=== PATIENT | female | born 1950 | race Two or more races ===

== ENCOUNTER 2017-07-21 05:44 | Inpatient (IN) | payer MEDICARE, MEDICAID ==
[2017-07-21] VITALS (21 sets, daily range): BP systolic 90–118; BP diastolic 52–70
[~2017-07-21] VITALS: Ht 162.6 cm; Wt 97.5 kg
[2017-07-21] MEDS ORDERED: ceFAZolin 1gm in D5W 55ml IVP ONE (06:00)
[2017-07-21] MEDS ORDERED: ATORVASTATIN CA20 MG ORAL (07:01)
[2017-07-21] MEDS ORDERED: GABAPENTIN100 MG ORAL (07:01)
[2017-07-21] MEDS ORDERED: VESICARE10 MG ORAL (07:01)
[2017-07-21] MEDS ORDERED: WARFARIN SODIUM1 MG ORAL (07:01)
[2017-07-21] MEDS ORDERED: BUMETANIDE1 MG ORAL (07:01)
[2017-07-21] MEDS ORDERED: IMIPRAMINE HCL10 MG PO (07:01)
[2017-07-21] MEDS ORDERED: FAMOTIDINE20 MG ORAL (07:01)
[2017-07-21] MEDS ORDERED: LANTUS SOL100 UNIT/1 SUBQ ×2 (07:01)
[2017-07-21] MEDS ORDERED: NeoSporin Gu Irrig 1ml Amp IRRIG ONE (07:12)
[2017-07-21] MEDS ORDERED: EPINEPHrine 1mg/1ml Amp ONE (07:12)
[2017-07-21] MEDS ORDERED: Bupivacaine 0.25% Inj 30ml INJ ONE (07:12)
[2017-07-21] MEDS ORDERED: Bacitracin 50000 Units Vial ONE (07:12)
[2017-07-21] MEDS ORDERED: Surgicel 4in x 8in TOPIC ONE (07:12)
[2017-07-21] MEDS ORDERED: Metoclopramide 10mg/10ml Liq ONE (07:20)
[2017-07-21] MEDS ORDERED: Sterile Water Irrig 1000ml IRRIG ONE (07:20)
[2017-07-21] MEDS ORDERED: NS Irrig 1000ml ONE (07:20)
[2017-07-21] MEDS ORDERED: fentaNYL 100 mcg/2 mL IV ONE (07:20)
[2017-07-21] MEDS ORDERED: Propofol 200mg/20ml IV ONE (07:20)
[2017-07-21] MEDS ORDERED: Midazolam 2mg/2ml Inj ONE (07:20)
[2017-07-21] MEDS ORDERED: Lidocaine 1% MPF 10mg/ml 5ml ONE (07:20)
[2017-07-21] MEDS ORDERED: LR 1000ml ONE (07:20)
[2017-07-21] MEDS ORDERED: Sterile Water For Irrig 2000ml IRRIG ONE (07:20)
[2017-07-21] MEDS ORDERED: ePHEDrine 50mg/ml Inj ONE (07:20)
[2017-07-21] MEDS ORDERED: Metoclopramide 10mg/2ml Inj ONE (07:20)
[2017-07-21] MEDS ORDERED: ProvayBlue 5mg/ml 10ml amp INJ ONE (07:30)
--- NOTE | 2017-07-21 07:38 | Anethesia Preoperative Eval ---
Anesthesia Pre-op PMH/ROS General Date of Evaluation: Jul 21, 2017 Time of Evaluation: 07:35 Anesthesiologist: alexander ASA Score: ASA 3 Mallampati Score Class I : Soft palate, uvula, fauces, pillars visible Class II: Soft palate, uvula, fauces visible Class III: Soft palate, base of uvula visible Class IV: Only hard plate visible Mallampati Classification: Class III Surgeon: Makeda Diagnosis: Bladder Prolapse Surgical Procedure: bladder sling Anesthesia History: none Family History: no anesthesia problems Allergies: Coded Allergies: No Known Allergies (Unverified , 07/20/17) Medications: see eMAR Past Medical History Cardiovascular: Reports: HTN, CAD, valve dz Pulmonary: Denies: asthma, COPD, [place], other Gastrointestinal/Genitourinary: Reports: GERD - controlled Neurologic/Psychiatric: Denies: dementia, CVA, depression/anxiety, TIA, other Endocrine: Reports: DM HEENT: Denies: cataract (L), cataract (R), glaucoma, [place] (L), EL[place] (R), other Hematology/Immune: Denies: anemia, DVT, bleeding disorder, other Other: obesity PSxH Narrative: pacemaker placement; tricuspid surgery Anesthesia Pre-op Phys. Exam Physician Exam see chart; vss; 125/70 vpaced Constitutional: NAD Neurologic: CN 2-12 intact Cardiovascular: other - v paced Respiratory: CTA Gastrointestinal: S/NT/ND Airway Exam Mallampati Score: Class III ROM: full Anesthesia Pre-op A/P Labs inr = 1.5 on 07/12 , stopped coumadin 07/12 Accucheck BS = 125 Studies Pre-op Studies: EKG - vpaced Risk Assessment & Plan Assessment: denies cp; chest pain Plan: LMA Status Change Before Surgery: No Pre-Antibiotics Drug: ancef Given Within 1 Hr of Incision: Yes Time Given: 07:35 MIKAL CASE CRNA Jul 21, 2017 07:38
--- NOTE | 2017-07-21 07:50 | Pre-Procedure Note/Attestation ---
Pre-Procedure Note/Attestation Complete Prior to Procedure Planned Procedure: not applicable Procedure Narrative: cystocele and rectocele repair vaginal sling cystoscopy Indications for Procedure Pre-Operative Diagnosis: prolapse Attestation I attest that I discussed the nature of the procedure; its benefits; risks and complications; and alternatives (and the risks and benefits of such alternatives ), prior to the procedure, with the patient (or the patient's legal credit and collections representative). I attest that, if there was a reasonable possibility of needing a blood transfusion, the patient (or the patient's legal credit and collections representative) was given the [facility] standardized written summary, pursuant to the Segundo [place] Blood Safety Act ([place] Health and Safety Code # 1645, as amended). I attest that I re-evaluated the patient just prior to the surgery and that there has been no change in the patient's H&P, except as documented below: Trevor Ashford MD Jul 21, 2017 07:50
--- NOTE | 2017-07-21 07:50 | Pre-Procedure Note/Attestation ---
Pre-Procedure Note/Attestation Complete Prior to Procedure Planned Procedure: not applicable Procedure Narrative: cystocele and rectocele repair vaginal sling cystoscopy Indications for Procedure Pre-Operative Diagnosis: prolapse Attestation I attest that I discussed the nature of the procedure; its benefits; risks and complications; and alternatives (and the risks and benefits of such alternatives ), prior to the procedure, with the patient (or the patient's legal off premise service representative). I attest that, if there was a reasonable possibility of needing a blood transfusion, the patient (or the patient's legal off premise service representative) was given the [facility] standardized written summary, pursuant to the Segundo [place] Blood Safety Act ([place] Health and Safety Code # 1645, as amended). I attest that I re-evaluated the patient just prior to the surgery and that there has been no change in the patient's H&P, except as documented below: Trevor Ashford MD Jul 21, 2017 07:50
--- NOTE | 2017-07-21 07:50 | Pre-Procedure Note/Attestation ---
Pre-Procedure Note/Attestation Complete Prior to Procedure Planned Procedure: not applicable Procedure Narrative: cystocele and rectocele repair vaginal sling cystoscopy Indications for Procedure Pre-Operative Diagnosis: prolapse Attestation I attest that I discussed the nature of the procedure; its benefits; risks and complications; and alternatives (and the risks and benefits of such alternatives ), prior to the procedure, with the patient (or the patient's legal printing sales representative). I attest that, if there was a reasonable possibility of needing a blood transfusion, the patient (or the patient's legal printing sales representative) was given the [facility] standardized written summary, pursuant to the Segundo [place] Blood Safety Act ([place] Health and Safety Code # 1645, as amended). I attest that I re-evaluated the patient just prior to the surgery and that there has been no change in the patient's H&P, except as documented below: Trevor Ashford MD Jul 21, 2017 07:50
[2017-07-21] MEDS ORDERED: Acetaminophen (Non formulary) 100 ML IV ONE (08:00)
--- NOTE | 2017-07-21 08:41 | Brief Operative Note ---
Immediate Post Operative Note Operative Note Pre-op Diagnosis: prolapse Procedure: cystocele and rectocele repair vaginal sling cystoscopy Post-op Diagnosis: same Surgeon: Francois Ashford Anesthesia: general Specimen: none Complications: none Condition: stable Fluids: 500 Estimated Blood Loss: minimal Implant(s) used?: Trevor Herrera MD Jul 21, 2017 08:41
--- NOTE | 2017-07-21 09:46 | Immediate Post-Op Evaluation ---
Immediate Post-Op Evalulation Immediate Post-Op Evalulation Procedure: bladder sling Date of Evaluation: Jul 21, 2017 Time of Evaluation: 08:45 IV Fluids: 600 Blood Pressure Systolic: 115 Blood Pressure Diastolic: 70 Pulse Rate: 67 Respiratory Rate: 14 O2 Sat by Pulse Oximetry: 100 Temperature (Fahrenheit): 97.5 Pain Score (1-10): 0 Nausea: No Vomiting: No Complications none Patient Status: awake, reacts, patent Hydration Status: adequate Drug: ancef Given Within 1 Hr of Incision: Yes Time Given: 07:35 MIKAL CASE CRNA Jul 21, 2017 09:46
--- NOTE | 2017-07-21 10:00 | 48 Hour Post Anesthesia Eval ---
Post Anesthesia Evaluation Procedure: bladder sling Date of Evaluation: Jul 21, 2017 Time of Evaluation: 10:00 Blood Pressure Systolic: 90 0: 61 Pulse Rate: 70 Respiratory Rate: 14 O2 Sat by Pulse Oximetry: 100 Airway: patent Nausea: No Vomiting: No Hydration Status: adequate Cardiopulmonary Status: stable Mental Status/LOC: patient returned to baseline Post-Anesthesia Complications: none Follow-up care needed: N/A MIKAL CASE CRNA Jul 21, 2017 10:00
[2017-07-21] MEDS ORDERED: HYDROmorphone 1mg/ml Carpuject IVP PRN (11:30)
[2017-07-21] MEDS: D5 1/2NS w/KCl 20mEq 1,000 ML IV SCH ×2 (12:17→23:53)
[2017-07-21 13:36] LABS: BASOPHILS % (AUTO) 0.8 % (0.0-2.0); EOSINOPHILS % (AUTO) 0.8 % (0.0-3.0); HEMATOCRIT 38.3 % (37.0-47.0); HEMOGLOBIN 12.1 G/DL (12.0-16.0); MEAN CORPUSCULAR VOLUME 89 FL (80-99); MONOCYTES % (AUTO) 6.6 % (1.0-10.0); NEUTROPHILS % (AUTO) 68.8 % (45.0-75.0); PLATELET COUNT 118 K/UL (150-450); RED BLOOD COUNT 4.32 M/UL (4.20-5.40); WHITE BLOOD COUNT 5.6 K/UL (4.8-10.8)
[2017-07-21 13:40] LABS: ANION GAP 5 mmol/L (5-15); BLOOD UREA NITROGEN 18 mg/dL (7-18); CALCIUM 8.9 MG/DL (8.5-10.1); CARBON DIOXIDE 31 MMOL/L (21-32); CHLORIDE 106 MMOL/L (98-107); POTASSIUM 3.5 MMOL/L (3.5-5.1); SODIUM 142 MMOL/L (136-145)
[2017-07-21] MEDS ORDERED: ceFAZolin sod 2 GM in D5W 110 ML IV SCH (15:00)
--- NOTE | 2017-07-21 15:17 | History and Physical ---
History of Present Illness General Date patient seen: Jul 21, 2017 Present Illness HPI 66 year old female with hx of Diabetes, depression admitted for surgical repair of bladder prolapse. Pt admitted to medical floor for post op care. Allergies: Coded Allergies: No Known Allergies (Unverified , 07/20/17) Medication History Scheduled Atorvastatin Calcium* (Atorvastatin Calcium*), 10 MG ORAL BEDTIME, (Reported) Bumetanide* (Bumetanide*), 1 MG ORAL BID, (Reported) Famotidine (Famotidine), 20 MG ORAL DAILY, (Reported) Gabapentin* (Gabapentin*), 100 MG ORAL THREE TIMES A DAY, (Reported) Imipramine Hcl (Imipramine Hcl), 10 MG PO DA, (Reported) Insulin Glargine (Lantus), 30 SUBQ AM, (Reported) Insulin Glargine (Lantus), 20 SUBQ BEDTIME, (Reported) Solifenacin Succinate (Vesicare*), 10 MG ORAL DAILY, (Reported) Warfarin Sod* (Warfarin Sod*), 1 MG ORAL BID, (Reported) Patient History Healthcare decision maker N Resuscitation status Full Code Advanced Directive on File Past Medical/Surgical History Past Medical/Surgical History: (1) Diabetes mellitus (2) Depression Review of Systems Constitutional: Reports: no symptoms Eye: Reports: no symptoms Physical Exam General Appearance: WD/WN, no apparent distress Lines, tubes and drains: peripheral, PICC HEENT: normocephalic, anicteric Neck: non-tender, normal alignment Respiratory/Chest: chest wall non-tender, lungs clear Cardiovascular/Chest: normal rate, regular rhythm Abdomen: non tender, soft Genitourinary/Rectal: normal genital exam, normal rectal exam Extremities: normal range of motion, non-pitting Last 24 Hour Vital Signs Date Time Temp Pulse Resp B/P (MAP) Pulse Ox O2 Delivery O2 Flow Rate FiO2 07/21/17 12:15 98.3 72 19 98/61 97 Nasal Cannula 2.0 07/21/17 11:00 97.6 69 22 99/56 100 Nasal Cannula 3.0 07/21/17 10:45 69 21 102/62 100 Nasal Cannula 3.0 07/21/17 10:25 69 22 100/61 100 Nasal Cannula 3.0 07/21/17 10:15 69 19 98/60 100 Nasal Cannula 3.0 07/21/17 10:00 69 15 90/57 100 Nasal Cannula 3.0 07/21/17 10:00 70 14 100 07/21/17 09:58 67 14 100 07/21/17 09:50 70 17 90/61 100 Nasal Cannula 3.0 07/21/17 09:40 69 20 91/54 100 Nasal Cannula 3.0 07/21/17 09:30 69 16 108/62 100 Nasal Cannula 3.0 07/21/17 09:20 69 20 109/67 100 Nasal Cannula 3.0 07/21/17 09:10 69 14 106/52 100 Nasal Cannula 3.0 07/21/17 09:00 70 15 110/64 100 Simple Mask 6.0 07/21/17 08:50 69 21 115/68 100 Simple Mask 6.0 07/21/17 08:45 69 18 118/69 100 Simple Mask 6.0 07/21/17 08:40 69 18 112/68 100 Simple Mask 6.0 07/21/17 08:35 97.4 69 16 115/70 100 Simple Mask 6.0 07/21/17 06:30 98.1 76 20 104/68 97 Room Air Intake and Output 07/21/17 07/22/17 19:00 07:00 Intake Total 1800 ml Output Total 60 ml Balance 1740 ml Intake IV Total 1800 ml Output Urine Total 50 ml Estimated Blood Loss 10 ml Laboratory Tests Test 07/21/17 13:15 White Blood Count 5.6 K/UL (4.8-10.8) Red Blood Count 4.32 M/UL (4.20-5.40) Hemoglobin 12.1 G/DL (12.0-16.0) Hematocrit 38.3 % (37.0-47.0) Mean Corpuscular Volume 89 FL (80-99) Mean Corpuscular Hemoglobin 28.0 PG (27.0-31.0) Mean Corpuscular Hemoglobin Concent 31.6 G/DL (32.0-36.0) L Red Cell Distribution Width 13.0 % (11.6-14.8) Platelet Count 118 K/UL (150-450) L Mean Platelet Volume 8.6 FL (6.5-10.1) Neutrophils (%) (Auto) 68.8 % (45.0-75.0) Lymphocytes (%) (Auto) 23.0 % (20.0-45.0) Monocytes (%) (Auto) 6.6 % (1.0-10.0) Eosinophils (%) (Auto) 0.8 % (0.0-3.0) Basophils (%) (Auto) 0.8 % (0.0-2.0) Sodium Level 142 MMOL/L (136-145) Potassium Level 3.5 MMOL/L (3.5-5.1) Chloride Level 106 MMOL/L (98-107) Carbon Dioxide Level 31 MMOL/L (21-32) Anion Gap 5 mmol/L (5-15) Blood Urea Nitrogen 18 mg/dL (7-18) Creatinine 1.0 MG/DL (0.55-1.30) Estimat Glomerular Filtration Rate 55.7 mL/min (>60) Glucose Level 142 MG/DL (74-106) H Calcium Level 8.9 MG/DL (8.5-10.1) Height (Feet): 5 Height (Inches): 4.00 Weight (Pounds): 215 Medications Current Medications Medications (Trade) Dose Ordered Sig/Jo Route PRN Reason Start Time Stop Time Status Last Admin Dose Admin Acetaminophen (Tylenol) 650 mg Q6H PRN ORAL Mild Pain (Pain Scale 1-3) 07/21/17 11:30 08/20/17 11:29 Acetaminophen/ Hydrocodone Bitart ([place] 5/325) 1 tab Q4H PRN ORAL Moderate Pain (Pain Scale 4-6) 07/21/17 11:30 07/28/17 11:29 Atorvastatin Calcium (Lipitor) 10 mg BEDTIME ORAL 07/21/17 21:00 08/20/17 20:59 Bumetanide (Bumex) 1 mg BID ORAL 07/21/17 18:00 08/20/17 17:59 Cefazolin Sodium 50 ml @ 100 mls/hr Q8H IV 07/21/17 15:00 07/21/17 23:29 Dextrose (Dextrose 50%) STAT PRN IV Hypoglycemia 07/21/17 15:15 08/20/17 15:14 Dextrose/ Electrolytes 1,000 ml @ 100 mls/hr Q10H IV 07/21/17 13:00 08/20/17 12:59 11/8/17 12:17 Docusate Sodium (Colace) 100 mg TWICE A DAY ORAL 07/21/17 18:00 08/20/17 17:59 Gabapentin (Neurontin) 100 mg THREE TIMES A DAY ORAL 07/21/17 18:00 08/20/17 17:59 Hydromorphone HCl (Dilaudid) 1 mg Q3H PRN IVP pain score 4-6 07/21/17 11:30 07/28/17 11:29 Imipramine HCl (Tofranil) 10 mg DAILY ORAL 07/22/17 09:00 08/21/17 08:59 Insulin Aspart (NovoLOG) BEFORE MEALS AND HS SUBQ 07/21/17 16:30 08/20/17 16:29 Ondansetron HCl (Zofran) 4 mg Q6H PRN IVP Nausea & Vomiting 07/21/17 11:30 08/20/17 11:29 Temazepam (Restoril) 7.5 mg QHS PRN ORAL Insomnia 07/21/17 21:00 07/28/17 20:59 Assessment/Plan Problem List: (1) Bladder prolapse SNOMED: 037967625 (2) Depression ICD Codes: F32.9 - Major depressive disorder, single episode, unspecified SNOMED: 83228195 (3) Diabetes mellitus ICD Codes: E11.9 - Type 2 diabetes mellitus without complications SNOMED: 07854673 Assessment/Plan iv fluids symptomatic treatment sliding scale diabetic diet. AMANDA VIERA Jul 21, 2017 15:17
[2017-07-21] MEDS: ceFAZolin 2gm/50ml Premix 50 ML IV SCH ×2 (15:50→23:53)
[2017-07-21] MEDS: Docusate 100mg cap ORAL SCH (18:24)
[2017-07-21] MEDS: NovoLOG Insulin Flexpen SUBQ SCH ×2 (18:25→21:57)
[2017-07-21] MEDS: Bumetanide 1mg tab ORAL SCH (20:45)
[2017-07-21] MEDS: Norco 5mg/325mg tab ORAL PRN (21:56)
[2017-07-22 04:00] VITALS: BP 102/59
[2017-07-22] MEDS: NovoLOG Insulin Flexpen SUBQ SCH ×3 (06:21→16:53)
[2017-07-22] MEDS: Norco 5mg/325mg tab ORAL PRN (06:57)
[2017-07-22 07:09] LABS: BASOPHILS % (AUTO) 0.6 % (0.0-2.0); EOSINOPHILS % (AUTO) 1.5 % (0.0-3.0); HEMATOCRIT 40.8 % (37.0-47.0); HEMOGLOBIN 12.2 G/DL (12.0-16.0); LYMPHOCYTES % (AUTO) 16.9 % (20.0-45.0); MEAN CORPUSCULAR VOLUME 91 FL (80-99); MONOCYTES % (AUTO) 6.3 % (1.0-10.0); NEUTROPHILS % (AUTO) 74.7 % (45.0-75.0); PLATELET COUNT 108 K/UL (150-450); RED BLOOD COUNT 4.46 M/UL (4.20-5.40); RED CELL DISTRIBUTION WIDTH 13.4 % (11.6-14.8); WHITE BLOOD COUNT 6.5 K/UL (4.8-10.8)
--- NOTE | 2017-07-22 07:30 | Operative Note - Dictated ---
DATE OF OPERATION: 07/21/2017 PREOPERATIVE DIAGNOSIS: Vaginal prolapse. POSTOPERATIVE DIAGNOSIS: Vaginal prolapse. OPERATION: Transvaginal cystocele repair, rectocele repair, vaginal wall sling cystoscopy. SURGEON: Trevor Ashford M.D. ANESTHESIA: General. FINDINGS: Vaginal prolapse, stress incontinence. INDICATION FOR SURGERY: The patient had recurrent symptoms of stress incontinence and pressure in the vagina. She was diagnosed with a grade 2 cystocele and mild rectocele. Treatment options were explained to her in great length including all potential complications. She signed a consent. DESCRIPTION OF PROCEDURE: She was brought to the operating room, placed in the lithotomy position, prepped and draped in standard fashion. She received 2 of Ancef. Max retractor was placed. Vagina was retracted. A Aguilar catheter was placed into the bladder. Using midline incision after injection of Xylocaine, bladder was from the vagina and midurethral sling was placed with a [employer] device in a self-retaining fashion. Bladder was re-approximated using interrupted Monocryl sutures, reapproximating the pubocervical ligaments. Cystoscopy after that showed normal bladder without any evidence of perforations. Aguilar catheter was replaced. Vagina was closed with running 2-0 Vicryl sutures. Vagina packed. The patient tolerated the procedure well. No evidence of complications. Trevor Ashford M.D. DR: BRIGITTE JOB#: [id number] CC:
[2017-07-22 07:34] LABS: ANION GAP 5 mmol/L (5-15); BLOOD UREA NITROGEN 13 mg/dL (7-18); CALCIUM 8.7 MG/DL (8.5-10.1); CARBON DIOXIDE 31 MMOL/L (21-32); CHLORIDE 106 MMOL/L (98-107); CREATININE 0.9 MG/DL (0.55-1.30); POTASSIUM 3.8 MMOL/L (3.5-5.1); SODIUM 142 MMOL/L (136-145)
[2017-07-22 08:00] VITALS: BP 92/57
[2017-07-22] MEDS: Bumetanide 1mg tab ORAL SCH ×2 (08:54→17:23)
[2017-07-22] MEDS: Docusate 100mg cap ORAL SCH ×2 (08:54→17:23)
[2017-07-22] MEDS ORDERED: Imipramine 10mg tab ORAL SCH (09:00)
[2017-07-22] MEDS: D5 1/2NS w/KCl 20mEq 1,000 ML IV SCH ×2 (09:00→19:00)
[2017-07-22 12:00] VITALS: BP 113/69
[2017-07-22] MEDS ORDERED: COLACE100 MG ORAL (17:29)
[2017-07-22] MEDS ORDERED: ACETAMINOPHEN-1 EAC1 ORAL (17:29)
--- NOTE | 2017-07-22 18:21 | Pulmonology Progress Note ---
Assessment/Plan Problems: (1) Bladder prolapse (2) Depression (3) Diabetes mellitus Assessment/Plan improving dc home with hh/ analgesics Subjective ROS Limited/Unobtainable: No Constitutional: Reports: no symptoms HEENT: Repors: no symptoms Respiratory: Reports: no symptoms Allergies: Coded Allergies: No Known Allergies (Unverified , 07/20/17) Objective Last 24 Hour Vital Signs Date Time Temp Pulse Resp B/P (MAP) Pulse Ox O2 Delivery O2 Flow Rate FiO2 07/22/17 12:00 97.2 71 17 113/69 96 Room Air 07/22/17 08:00 97.2 69 17 92/57 97 Room Air 07/22/17 04:00 97.9 71 18 102/59 99 Room Air 07/21/17 23:49 98.1 72 18 103/59 95 Room Air 07/21/17 22:55 98.1 07/21/17 21:50 73 105/58 07/21/17 19:52 98.1 72 18 97/59 96 Room Air Intake and Output 07/22/17 07/23/17 19:00 07:00 Intake Total 500 ml Output Total 750 ml Balance -250 ml Intake Oral 500 ml Output Urine Total 750 ml Objective General Appearance: WD/WN, no apparent distress Lines, tubes and drains: peripheral, PICC HEENT: normocephalic, anicteric Neck: non-tender, normal alignment Respiratory/Chest: chest wall non-tender, lungs clear Cardiovascular/Chest: normal rate, regular rhythm Abdomen: non tender, soft Genitourinary/Rectal: normal genital exam, normal rectal exam Extremities: normal range of motion, non-pitting Laboratory Tests 07/22/17 05:30: White Blood Count 6.5, Red Blood Count 4.46, Hemoglobin 12.2, Hematocrit 40.8, Mean Corpuscular Volume 91, Mean Corpuscular Hemoglobin 27.4, Mean Corpuscular Hemoglobin Concent 30.0L, Red Cell Distribution Width 13.4, Platelet Count 108L , Mean Platelet Volume 9.2, Neutrophils (%) (Auto) 74.7, Lymphocytes (%) (Auto) 16.9L, Monocytes (%) (Auto) 6.3, Eosinophils (%) (Auto) 1.5, Basophils (%) (Auto ) 0.6, Sodium Level 142, Potassium Level 3.8, Chloride Level 106, Carbon Dioxide Level 31, Anion Gap 5, Blood Urea Nitrogen 13, Creatinine 0.9, Estimat Glomerular Filtration Rate > 60, Glucose Level 144H, Calcium Level 8.7 Current Medications Medications (Trade) Dose Ordered Sig/Jo Route PRN Reason Start Time Stop Time Status Last Admin Dose Admin Acetaminophen (Tylenol) 650 mg Q6H PRN ORAL Mild Pain (Pain Scale 1-3) 07/21/17 11:30 08/20/17 11:29 Acetaminophen/ Hydrocodone Bitart ([place] 5/325) 1 tab Q4H PRN ORAL Moderate Pain (Pain Scale 4-6) 07/21/17 11:30 07/28/17 11:29 07/22/17 06:57 Atorvastatin Calcium (Lipitor) 10 mg BEDTIME ORAL 07/21/17 21:00 08/20/17 20:59 07/21/17 21:55 Bumetanide (Bumex) 1 mg BID ORAL 07/21/17 18:00 08/20/17 17:59 07/22/17 08:54 Dextrose (Dextrose 50%) STAT PRN IV Hypoglycemia 07/21/17 15:15 08/20/17 15:14 Dextrose/ Electrolytes 1,000 ml @ 100 mls/hr Q10H IV 07/21/17 13:00 08/20/17 12:59 07/21/17 23:53 Docusate Sodium (Colace) 100 mg TWICE A DAY ORAL 07/21/17 18:00 08/20/17 17:59 07/22/17 08:54 Gabapentin (Neurontin) 100 mg THREE TIMES A DAY ORAL 07/21/17 18:00 08/20/17 17:59 07/22/17 08:54 Imipramine HCl (Tofranil) 10 mg DAILY ORAL 07/22/17 09:00 08/21/17 08:59 07/22/17 08:54 Insulin Aspart (NovoLOG) BEFORE MEALS AND HS SUBQ 07/21/17 16:30 08/20/17 16:29 07/22/17 16:53 Ondansetron HCl (Zofran) 4 mg Q6H PRN IVP Nausea & Vomiting 07/21/17 11:30 08/20/17 11:29 Temazepam (Restoril) 7.5 mg QHS PRN ORAL Insomnia 07/21/17 21:00 07/28/17 20:59 AMANDA VIERA Jul 22, 2017 18:21
[2017-07-22] MEDS ORDERED: NS Irrig 1000ml ONE (18:49)
--- NOTE | 2017-07-23 12:24 | Discharge Summary ---
Discharge Summary Hospital Course Date of Admission Jul 21, 2017 at 05:44 Date of Discharge Jul 22, 2017 at 18:50 Admitting Diagnosis HPI Chey Valerio is a 66 year old female who was admitted on Jul 21, 2017 at 05:44 for Bladder Prolapse Hospital Course [id number] Discharge Discharge Disposition Patient was discharged to Home with Discharge Diagnoses: Jacquelyn Barber NP Jul 23, 2017 12:24
--- NOTE | 2017-07-23 12:24 | Discharge Summary ---
Discharge Summary Hospital Course Date of Admission Jul 21, 2017 at 05:44 Date of Discharge Jul 22, 2017 at 18:50 Admitting Diagnosis HPI Chey Valerio is a 66 year old female who was admitted on Jul 21, 2017 at 05:44 for Bladder Prolapse Hospital Course [id number] Discharge Discharge Disposition Patient was discharged to Home with Discharge Diagnoses: Jacquelyn Barber NP Jul 23, 2017 12:24
--- NOTE | 2017-07-23 12:24 | Discharge Summary ---
Discharge Summary Hospital Course Date of Admission Jul 21, 2017 at 05:44 Date of Discharge Jul 22, 2017 at 18:50 Admitting Diagnosis HPI Chey Valerio is a 66 year old female who was admitted on Jul 21, 2017 at 05:44 for Bladder Prolapse Hospital Course [id number] Discharge Discharge Disposition Patient was discharged to Home with Discharge Diagnoses: Jacquelyn Barber NP Jul 23, 2017 12:24
--- NOTE | 2017-07-24 00:30 | Discharge Summary 2 SIG ---
DATE OF ADMISSION: 07/21/2017 DATE OF DISCHARGE: 07/22/2017 SURGEON: Trevor Ashford M.D. BRIEF HOSPITAL COURSE: The patient is a 66-year-old female, who has recurrent symptoms of stress incontinence and pressure in the vagina. She was diagnosed with grade 2 cystocele and mild rectocele. Treatment options were explained and patient opted for a transvaginal cystocele repair and rectocele repair with vaginal wall sling cystoscopy. She was admitted on 07/21/2017 and undergone the procedure. Postoperatively, she was admitted for postop care, where she was given pain management and IV hydration. Following day, she was given physical therapy and vaginal packing was removed. She was eventually discharged home. FINAL DIAGNOSES: Stress incontinence with cystocele and rectocele, status post transvaginal cystocele repair and rectocele repair with vaginal wall sling cystoscopy. DISPOSITION: The patient was discharged home with home health for Aguilar catheter care. DISCHARGE MEDICATIONS: Refer to medication list. FOLLOWUP: Follow up with Dr. Ashford within a week. Carlos Monteiro M.D. I have been assigned to dictate discharge summary on this account and I was not involved in the patient's management. Jacquelyn Barber N.P. DR: CLARISSA JOB#: [id number] CC: TILA
== END 2017-07-22 18:50 | disposition home or self-care (01) | DRG 748 ==
LOC: SDSOVERFLO 05:44 → 3E 11:01
DX: N81.10 Cystocele, unspecified (principal); E11.40 Type 2 diabetes mellitus with diabetic neuropathy, unspecified; F32.9 Major depressive disorder, single episode, unspecified; N39.3 Stress incontinence (female) (male); N81.6 Rectocele; Z79.4 Long term (current) use of insulin; Z79.01 Long term (current) use of anticoagulants
CPT/HCPCS: 36415; 80048; 82962; 85025; 87081; 93005; 94003; 94150; J1815; J2250; J2405; J2765